=== PATIENT | female | born 1965 | race Caucasian/White ===

== ENCOUNTER 2020-06-24 13:03 | Emergency (ER) | payer OTHER ==
[~2020-06-24] VITALS: Ht 144.8 cm; Wt 63.5 kg
[2020-06-24 13:05] VITALS: Ht 144.8 cm; Wt 63.5 kg
[2020-06-24 17:28] VITALS: BP 1225/89
== END 2020-06-24 17:28 | disposition home or self-care (01) ==
LOC: ED 13:03
DX: G44.209 Tension-type headache, unspecified, not intractable (principal); Z86.73 Personal history of transient ischemic attack (TIA), and cerebral infarction without residual deficits; Z98.890 Other specified postprocedural states
CPT/HCPCS: J1885